=== PATIENT | male | born 2000 | race Caucasian/White ===

== ENCOUNTER → 2024-01-18 15:28 | Outpatient (REF) | payer OTHER, SELFPAY | LOC: HWRAD 15:28 | PROVIDERS: ATTENDING PHYSICIAN Internal Medicine | DX: R22.32 Localized swelling, mass and lump, left upper limb (principal) | CPT/HCPCS: 73080 ==

== ENCOUNTER 2024-10-18 19:07 | Emergency (ER) | payer OTHER, SELFPAY ==
[2024-10-18 19:10] VITALS: BP 127/96
--- NOTE | 2024-10-18 20:28 | ED.GENMED ---
History of Present Illness
General
Chief Complaint: Male Genito-Urinary Symptoms
Source: patient
Exam Limitations: none
Time Seen by Provider: 10/18/24 20:00
Nursing documentation reviewed up to this point in time: agreed with
History of Present Illness
History of Present Illness:
24-year-old male presents emergency room complaining of right-sided testicular pain. He states it feels heavy. He was seen in urologist about a month ago, and was diagnosed with a varicocele. He denies any difficulty urinating.
Past History
Past History
ED Past Medical History: None
ED Past Surgical History: Urological (Circumcision age 11)
Social History
Tobacco: Non-smoker
Alcohol: None
Drug: None
Personal: Single
Living: with family
Review of Systems
Review of Systems
Allergies reviewed?: Yes
All Other Systems: Not applicable
Constitutional: Reports no symptoms
EENT: Reports no symptoms
Respiratory: Reports no symptoms
Cardiac: Reports no symptoms
ABD/GI: Reports no symptoms
: Reports other (Testicular pain)
Musculoskeletal: Reports no symptoms
Skin: Reports no symptoms
Neurological: Reports no symptoms
Endocrine: Reports no symptoms
Hematologic/Lymphatic: Reports no symptoms
Psychiatric: Reports no symptoms
Phy Exam
Physical Exam
Physical Exam:
Physical Exam
General: no apparent distress, not acutely ill
Neck: supple. no meningeal signs. normal posterior pharynx
Heart: s1/s2 regular rate and rhythm, no murmur. equal radial
pulses.
HEENT: Pupils equal round reactive to light, EOMI
Lungs: no acute respiratory distress. clear bilaterally
Abdomen: normal bowel sounds. not tender. no CVAT
Neuro: alert and oriented. no focal neurological deficits cranial nerves II through XII intact
Skin: no rash
Psychiatric: well kept. interactive and cooperative
Extremities: no edema. no calf tenderness. negative homans. good distal pulses
Genitourinary Exam Male
Exam Male: circumcised, no CVAT, no discharge, normal external genitalia, normal testicular exam, no evidence of trauma, no testicular swelling and no testicular tenderness
Course
Orders/Labs/Results
Orders:
Orders
10/18/24 19:14
Scrotum US [US Scrotum] Urgent
Comment:
Reason For Exam: right sided testicular pain
10/18/24 21:04
Urinalysis Reflex To Culture Urgent
Date Specimen was Collected: 10/18/24
Time Specimen was Collected: 21:03
Vital Signs
Initial and Last Documented VS:
Initial Vital Signs
Temp Pulse Resp BP Pulse Ox
98.4 F 92 18 127/96 99
10/18/24 19:10 10/18/24 19:10 10/18/24 19:10 10/18/24 19:10 10/18/24 19:10
Last Documented Vital Signs
Temp Pulse Resp BP Pulse Ox
98.4 F 92 18 127/96 99
10/18/24 19:10 10/18/24 19:10 10/18/24 19:10 10/18/24 19:10 10/18/24 19:10
MDM/Problems Addressed
Differential Diagnosis Includes:
Varicocele, epididymitis, testicular torsion, testicular tumor
MDM/Problems Addressed:
24-year-old male with testicular pain, no significant abnormality seen. Stable for discharge. Will follow-up with urology as needed. Return precautions given.
*Radiology
Radiology exam reviewed: radiology read reviewed (Ultrasound scrotum normal)
*Pulse Oximetry
Patient hypoxic: no
*Critical Care Note
Total Time (30-74mins, 75-104mins- exclusive of procedures): Not Applicable
Patient Management
Social determinants of health affecting care: Living situation and Strong social support
Escalation/DeEscalation of care consider admission/obs:
Admit not indicated
ED Attending Note
-
Portions of this chart may have been created with voice recognition software.� Occasional wrong word or��sound alike� substitutions may have occurred due to the inherent limitations of voice recognition software.
Discharge Plan
Departure
Patient Disposition: Home (Routine Discharge)
Date of Disposition: 10/18/24
Time of Disposition: 21:28
Patient with high blood pressure during this ER visit?: Yes
Condition: Good
Discharge Problem:
Pain in right testicle
Instructions: How to Perform a Testicular Self-Exam, BLOOD PRESSURE
Referrals:
Marty Bray MD [Active] - Call in 1-3 days for appt
Interventions
Interventions:
*Risk Screen - Suicide Last Done: 10/18/24 19:10
*General Assessment Last Done: 10/18/24 20:05
*Neglect/Abuse Screening Last Done: 10/18/24 19:10
*ED COVID-19 Vaccine History Last Done: 10/18/24 20:05
ED-Male Genitourinary Assessment Last Done: 10/18/24 20:05
Discharge Date and Time
Print Language: YI
[2024-10-18 21:16] LABS: Urine Albumin Negative (Neg - Trace); Urine Bilirubin Negative (Negative); Urine Character Clear (Clear); Urine Color Yellow; Urine Glucose Negative (Negative); Urine Ketone Negative (Negative); Urine Leukocyte Negative (Negative); Urine Nitrite Negative (Negative); Urine Occult Blood Negative (Negative); Urine Specific Gravity 1.005 (<1.030); Urine Urobilinogen Negative (Neg - 1+)
== END 2024-10-18 21:47 | disposition home or self-care (01) ==
LOC: EMR 19:07
PROVIDERS: EMERGENCY PHYSICIAN Emergency Medicine; FAMILY PHYSICIAN Internal Medicine
DX: N50.811 Right testicular pain (principal)
CPT/HCPCS: 99284; 76870; 81003; 93976

== ENCOUNTER 2024-12-28 18:45 | Emergency (ER) | payer OTHER, SELFPAY ==
[2024-12-28 18:59] VITALS: BP 116/71
[2024-12-28 19:16] LABS: Hematocrit 42.3 % (39.0-52.0); Hemoglobin 15.6 g/dL (13.0-18.0); Mean Corp Hgb Conc. 36.9 g/dL (33.0-37.0); Mean Corpuscular Volume 89.8 fL (80.0-94.0); Nucleated Red Blood Cells % 0 % (-); Platelet Count 284 10^3/uL (130-400); Red Cell Dist. Width 11.9 % (11.5-14.5)
[2024-12-28 19:28] LABS: ALT (SGPT) 19 U/L (0-50); AST (SGOT) 22 U/L (17-59); Albumin 4.9 g/dl (3.5-5.0); Alkaline Phosphatase 30 U/L (38-126); Blood Urea Nitrogen 11 mg/dl (9-20); Calcium 10.0 mg/dl (8.4-10.2); Carbon Dioxide 26 mmol/L (22-30); Chloride 108 mmol/L (98-107); Glucose 99 mg/dl (70-99); Lipase 29 U/L (23-300); Potassium 3.8 mmol/L (3.5-5.1); Sodium 141 mmol/L (135-145); Total Protein 7.2 g/dl (6.3-8.2); eGFR > 60.00
[2024-12-28] MEDS: OMNIPAQUE 50 ML PO (20:49)
--- NOTE | 2024-12-28 20:56 | ED.GENMED ---
History of Present Illness
<Shaun Mesa PA-C - Last Filed: 12/29/24 20:21>
General
Chief Complaint: Abdominal Symptoms
Source: patient and family
Time Seen by Provider: 12/28/24 20:20
History of Present Illness
History of Present Illness:
24-year-old male with no significant past medical history presents to the emergency department for evaluation after he has been dealing with multiple episodes of diarrhea for the last 2 weeks, initially loose, now watery, associated with significant
abdominal cramping noting he wakes up daily between 6 and 7 AM needing to go to the bathroom. Patient also notes some mucousy stools with this. Patient went to urgent care and was prescribed Bentyl which she states does help with the cramping but
still with the diarrhea. He also went to his primary care provider and did outpatient stool studies which were reportedly negative. They recontacted the primary care provider to try and get outpatient referral to GI but did not hear back from the
primary care provider. Patient states that he is lost approximately 11 pounds since symptoms started. He notes that symptoms were made worse when he ate dairy products. No fevers or infectious symptoms. No recent travel. No recent antibiotics.
Past History
<Shaun Mesa PA-C - Last Filed: 12/29/24 20:21>
Past History
ED Past Medical History: None
ED Past Surgical History: Urological (Circumcision age 11)
Social History
Tobacco: Non-smoker
Alcohol: None
Drug: None
Personal: Single
Living: with family
Review of Systems
<Shaun Mesa PA-C - Last Filed: 12/29/24 20:21>
Review of Systems
All Other Systems: ROS reviewed and negative except as documented in HPI and ROS
Phy Exam
<Shaun Mesa PA-C - Last Filed: 12/29/24 20:21>
Physical Exam
Physical Exam:
GENERAL: Alert , in no apparent distress
EYE: clear conjunctiva b/l
HEAD: NCAT
ENT: o/p clr, mmm.
CARDIAC: Regular rate and rhythm .
LUNGS: Clear breath sounds bilaterally, no acute respiratory distress, no wheezes/rales/rhonchi
ABDOMEN: Soft, without focal tenderness, no r/g, no cvat
NEUROLOGICAL: Alert and oriented
SKIN: Warm and dry, skin intact.
MUSCULOSKELETAL: No edema, well perfused.
PSYCH: Normal and appropriate interaction.
Scores
<Shaun Mesa PA-C - Last Filed: 12/29/24 20:21>
Heart Failure Risk
Heart Failure Risk Score: Not Applicable
Heart Score for Chest Pain Patients
STEMI patient?: Not applicable
Withdrawal Assessment of Alcohol
Withdrawal Assessment Completed?: Not applicable
Course
<Shaun Mesa PA-C - Last Filed: 12/29/24 20:21>
Orders/Labs/Results
Orders:
Orders
12/28/24 19:09
C-Reactive Protein Urgent
Comment: ADD ON
Complete Blood Count/With Diff Urgent
Comprehensive Metabolic Panel Urgent
Erythrocyte Sed Rate Urgent
Comment: ADD ON
Lipase Urgent
12/28/24 20:20
Add On- LAB Urgent
Tests Added?: esr/crp
CT Abd/pel W Iv And Oral Contr Urgent
Comment:
Reason For Exam: generalized abd pain, diarrhea
Iohexol [Omnipaque] See Protocol PO NOW STA
Abnormal Lab Results
12/28/24
19:09
MCH 33.1 H pg
(27.0-31.0)
MPV 10.5 H fL
(7.4-10.4)
Absolute Lymphs (auto) 1.1 L 10^3/uL
(1.2-3.4)
Lymphocytes % 16.4 L %
(20.5-51.1)
Chloride 108 H mmol/L
(98-107)
Alkaline Phosphatase 30 L U/L
(38-126)
12/28/24 19:09
12/28/24 19:09
Vital Signs
Initial and Last Documented VS:
Initial Vital Signs
Temp Pulse BP Pulse Ox
98.6 F 83 116/71 100
12/28/24 18:59 12/28/24 18:59 12/28/24 18:59 12/28/24 18:59
Last Documented Vital Signs
Temp Pulse Resp BP Pulse Ox
98.6 F 59 18 116/66 100
12/28/24 18:59 12/28/24 23:36 12/28/24 23:36 12/28/24 23:36 12/28/24 23:36
Jennylt;Makayla Wagoner PA-C - Last Filed: 12/29/24 02:35>
Orders/Labs/Results
Orders:
Orders
12/28/24 19:09
C-Reactive Protein Urgent
Comment: ADD ON
Complete Blood Count/With Diff Urgent
Comprehensive Metabolic Panel Urgent
Erythrocyte Sed Rate Urgent
Comment: ADD ON
Lipase Urgent
12/28/24 20:20
Add On- LAB Urgent
Tests Added?: esr/crp
CT Abd/pel W Iv And Oral Contr Urgent
Comment:
Reason For Exam: generalized abd pain, diarrhea
Iohexol [Omnipaque] See Protocol PO NOW STA
Abnormal Lab Results
12/28/24
19:09
MCH 33.1 H pg
(27.0-31.0)
MPV 10.5 H fL
(7.4-10.4)
Absolute Lymphs (auto) 1.1 L 10^3/uL
(1.2-3.4)
Lymphocytes % 16.4 L %
(20.5-51.1)
Chloride 108 H mmol/L
(98-107)
Alkaline Phosphatase 30 L U/L
(38-126)
12/28/24 19:09
12/28/24 19:09
Vital Signs
Initial and Last Documented VS:
Initial Vital Signs
Temp Pulse BP Pulse Ox
98.6 F 83 116/71 100
12/28/24 18:59 12/28/24 18:59 12/28/24 18:59 12/28/24 18:59
Last Documented Vital Signs
Temp Pulse Resp BP Pulse Ox
98.6 F 59 18 116/66 100
12/28/24 18:59 12/28/24 23:36 12/28/24 23:36 12/28/24 23:36 12/28/24 23:36
<Shaun Mesa PA-C - Last Filed: 12/29/24 20:21>
MDM/Problems Addressed
Differential Diagnosis Includes:
- Inflammatory bowel disease
- IBS
- Electrolyte derangement
- Dehydration
- Foodborne illness
- Given negative stool studies I do not have concern for infectious diarrhea
- Colitis
MDM/Problems Addressed:
24-year-old male presenting to the ER for evaluation of diarrhea x 2 weeks. Negative stool studies as an outpatient. Will check labs including inflammatory markers as well as CT imaging. Discussed with patient dietary modifications as well as a
dietary log to see if he can isolate what types of foods might be exacerbating any symptoms. Anticipate outpatient follow-up with GI, discussed potential for need of colonoscopy and further outpatient testing.
<Shaun Mesa PA-C - Last Filed: 12/29/24 20:21>
*Radiology
Radiology exam reviewed: radiology read reviewed
*Pulse Oximetry
SaO2: 100
Oxygen Mode of Delivery: Room air
Patient hypoxic: no
<Makayla Wagoner PA-C - Last Filed: 12/29/24 02:35>
*Critical Care Note
Total Time (30-74mins, 75-104mins- exclusive of procedures): Not Applicable
<Shaun Mesa PA-C - Last Filed: 12/29/24 20:21>
Patient Management
Escalation/DeEscalation of care consider admission/obs:
Patient CT is negative for acute pathologies. Notified GI commercial front load driver staff to help facilitate close outpatient follow up. Aware of return precautions
<Makayla Wagoner PA-C - Last Filed: 12/29/24 02:35>
Update Note
Update Note:
Update, I received patient in signout. On my assessment, patient is well-appearing in no acute distress. He has no abdominal pain at this time. Discussed CT results with patient. There was noted to be oral contrast in the colon suggestive of
either hyperperistalsis/enterocolitis or may be due to delayed imaging. There is no evidence of wall thickening or inflammation. In light of negative stool cultures, no white count, will hold off on antibiotics, do not suspect infectious colitis.
Information was sent to the GI commercial front load driver for follow up. Patient stable for discharge.
ED Attending Note
<Shaun Mesa PA-C - Last Filed: 12/29/24 20:21>
-
Portions of this chart may have been created with voice recognition software.� Occasional wrong word or��sound alike� substitutions may have occurred due to the inherent limitations of voice recognition software.
Discharge Plan
Departure
Patient Disposition: Home (Routine Discharge)
Date of Disposition: 12/29/24
Time of Disposition: 00:24
Patient with high blood pressure during this ER visit?: No
Condition: Good
Discharge Problem:
Diarrhea
Instructions: Diarrhea in teens and adults
Referrals:
Tosin Condon MD [Active, Gastroenterology] - Call in 1-3 days for appt
Victoria Duong DO [Family Provider, Family Practice]
Activity Restrictions/Additional Instructions:
You should receive a call in the coming days to schedule appointment with gastroenterology. If you do not receive a call, please call attached number.
PLEASE RETURN TO THE EMERGENCY DEPARTMENT SHOULD YOU DEVELOP RECTAL BLEEDING, BLOODY STOOLS, FEVERS OR CHILLS, INCREASING ABDOMINAL PAIN, CHEST PAIN, SHORTNESS OF BREATH, LOSS OF CONSCIOUSNESS, OR ANY OTHER SIGNS OR SYMPTOMS WORRISOME TO YOU
Interventions
Interventions:
*Risk Screen - Suicide Last Done: 12/28/24 21:00
*General Assessment Last Done: 12/28/24 19:00
*Neglect/Abuse Screening Last Done: 12/28/24 21:00
*ED- Fall Risk Assessment Last Done: 12/28/24 21:00
*ED COVID-19 Vaccine History Last Done: 12/28/24 21:00
*Nursing Disposition Last Done: 12/29/24 00:27
BP-Rtnzng-Wmkniqtnuc Assessment Last Done: 12/28/24 20:57
Discharge Date and Time
Discharge Date/Time: 12/29/24 00:28
Print Language: LITHUANIAN
[2024-12-28 21:15] LABS: C-Reactive Protein < 5.00 mg/L (0.0-10.00)
[2024-12-28 23:36] VITALS: BP 116/66
== END 2024-12-29 00:28 | disposition home or self-care (01) ==
LOC: EMR 18:45
PROVIDERS: Emergency Medicine; EMERGENCY PHYSICIAN Student in an Organized Health Care Education/Training Program; FAMILY PHYSICIAN Internal Medicine
DX: R19.7 Diarrhea, unspecified (principal)
CPT/HCPCS: 99284; 74177; 80053; 83690; 85025; 85652; 86140; Q9967